=== PATIENT | female | born 1995 | race African-American/Black ===

== ENCOUNTER 2019-04-28 06:57 | Emergency (ER) | payer OTHER ==
[~2019-04-28] VITALS: Ht 157.5 cm; Wt 57.6 kg
[~2019-04-28 06:57] MED LIST: APAP500 PO; COLACE100 MG PO; HYDROCODON-ACE1 EAC7 PO; IBUPROFEN 600600 M1 PO; IBUPROFEN200 M2 PO; NOHOMEMEDICATIONS; PRENA1 PLUS CO1 EACH PO
[2019-04-28 07:33] LABS: HEMATOCRIT 34.8 % (37.0-47.0); HEMOGLOBIN 11.5 gm/dL (12.0-15.0); MCH 28.1 pg (26.0-34.0); MCHC 33.1 g/dL (28.0-37.0); MCV 84.7 fL (80.0-100.0); RBC 4.1 mil/uL (4.20-5.00); RDW 14.1 % (10.5-14.5); WBC 11.9 thou/uL (4.0-11.0)
[2019-04-28 09:20] VITALS: BP 129/75
== END 2019-04-28 09:20 | disposition home or self-care (01) ==
LOC: ER 06:57
PROVIDERS: Emergency Medicine
DX: O20.0 Threatened abortion (principal); Z3A.20 20 weeks gestation of pregnancy; Z88.1 Allergy status to other antibiotic agents; Z91.010 Allergy to peanuts; Z98.890 Other specified postprocedural states